=== PATIENT | male | born 2000 | race Caucasian/White ===

== ENCOUNTER 2018-03-23 19:52 | Emergency (ER) | payer OTHER ==
[~2018-03-23] VITALS: Ht 188 cm; Wt 79.5 kg
[2018-03-23 19:56] VITALS: BP 127/71; TEMP 99.1
[2018-03-23 22:00] VITALS: PULSE 89
[2018-03-27 13:10] LABS: MUMPS VIRUS ANTIBODY,IGG Equivocal (())
== END 2018-03-23 22:01 | disposition home or self-care (01) ==
LOC: COL.ER 19:52
PROVIDERS: Emergency Medicine
DX: J02.9 Acute pharyngitis, unspecified (principal)